=== PATIENT | female | born 1970 | race Two or more races ===

== ENCOUNTER 2018-02-08 13:13 | Inpatient (IN) | payer MEDICAID, OTHER ==
[~2018-02-08] VITALS: Ht 172.7 cm; Wt 86.2 kg
[2018-02-08] MEDS ORDERED: IV NS 0.9% 1,000 ML BAG IV ONE ×2 (13:30→15:00)
[2018-02-08 13:36] LABS: BASOPHILS % (AUTO) 0.7 % (0.0-2.0); EOSINOPHILS % (AUTO) 1.8 % (0.0-6.0); HEMATOCRIT 35 % (33-45); HEMOGLOBIN 12.1 g/dL (11.5-14.8); LYMPHOCYTES % (AUTO) 29.1 % (20.0-44.0); MEAN CORPUSCULAR HGB CONC 34 g/dl (31.0-36.0); MEAN CORPUSCULAR VOLUME 109 fL (82-100); MONOCYTES # (AUTO) 0.9 /CMM (0.1-1.30); MONOCYTES % (AUTO) 13.3 % (2.0-12.0); NEUTROPHILS # (AUTO) 3.7 /CMM (1.8-8.9); NEUTROPHILS % (AUTO) 55.1 % (43.0-81.0); PLATELET COUNT (AUTO) 375 /CMM (150-450); RED BLOOD CELL COUNT(AUTO) 3.24 MIL/uL (4.0-5.2); WHITE BLOOD COUNT (AUTO) 6.7 K/uL (4.3-11.0)
[2018-02-08 13:45] LABS: CALCIUM, SERUM 8.1 mg/dL (8.5-10.1); CREATININE 0.8 mg/dL (0.6-1.3); POTASSIUM 3.5 mmol/L (3.5-5.1)
[2018-02-08 13:50] LABS: ALBUMIN 3.2 g/dL (3.4-5.0); BILIRUBIN,DIRECT 0.1 mg/dL (0.0-0.2); BILIRUBIN,TOTAL 0.2 mg/dL (0.2-1.0); SALICYLATE 3.2 mg/dL (2.8-20.0); TOTAL PROTEIN, SERUM 6.3 g/dL (6.4-8.2)
--- NOTE | 2018-02-08 13:53 | NUR ---
PT BROUGHT IN BY PARAMEDICS FOR ALOC SECONDARY TO TRAZADONE OVER DOSE PT NON RESPONSIVE PUPILS 4MM AND SLOW PIV PLACED IN LEFT AC 18 G BY PARAMEDICS EKG BEING DONE.
[2018-02-08 14:43] LABS: APPEARANCE,URINE Clear (CLEAR); BILIRUBIN,URINE Negative (NEGATIVE); BLOOD, URINE Moderate Ery/uL (NEGATIVE); COLOR,URINE Yellow (YELLOW); KETONES,URINE Negative (NEGATIVE); LEUKOCYTE ESTERASE ,URINE Negative (NEGATIVE); NITRITE, URINE Negative (NEGATIVE); PH,URINE 6.5 (5.0-8.0); PROTEIN,URINE Negative (NEGATIVE); UGLUCOSE Negative (NEGATIVE); UROBILINOGEN,URINE 0.2 EU/dL (0.2)
--- NOTE | 2018-02-08 14:48 | NUR ---
ACCUCHECK DONE 78 VALUE MD AWARE. PATIENT NON RESPONSIVE TO VERBAL STIMULIS BUT RESPONSIVE WHEN FOLY WAS INSERTED SHE GRIMICED. CURRENT BP TAKEN MD AWARE. SECOND LITER OF FLUIDS ORDERED AND GIVEN. URINE IS CLEAR AND YELLOW 300ML OUTPUT WILL CONTIUNE TO MONITOR PATIENT. REPORT GIVEN TO TOBI GTZ RN PT ADMITTED TO ROOM 107 [facility] MD MELENDEZ
[2018-02-08 14:59] LABS: BACTERIA,URINE Many /HPF (None Seen); WBC,URINE 0-2 /HPF (0-3)
[2018-02-08 15:00] LABS: SQUAMOUS EPITHELIAL CELL,UR Moderate /HPF (None Seen)
[2018-02-08 16:00] VITALS: BP 96/63
[2018-02-08 16:10] VITALS: BP 96/63
--- NOTE | 2018-02-08 16:10 | NUR ---
TELE TD-RN ADMITTING NOTES ADMITTED PT FROM ER WITH DX OF TRAZODONE AND WITH LT ANKLE PAIN.PT IS OBTUNDED.WITH IV H/L INTACT TO LT AC.PT IS TOO LETHARGIC.WITH O2 AT 2L/MIN VIA N/C.NO SOB NOTED.O2 SAT 100%.PT'S MOM,VASHTI IS AT BEDSIDE.NO S/S OF PAIN OR DISTRESS.APHASIC BUT RESPONSIVE TO TACTILE STIMULI.CALL LIGHT PLACED WITHIN REACH.
[2018-02-08] MEDS ORDERED: INSULIN REGULAR, HUMAN 100 UNIT/ML 3 ML VIAL SQ PRN (17:30)
[2018-02-08] MEDS ORDERED: ONDANSETRON HCL/PF 4 MG/2 ML VIAL IVP PRN (17:30)
[2018-02-08] MEDS ORDERED: DEXTROSE 50%-WATER 50 ML DISP.SYRIN IV PRN (17:30)
[2018-02-08] MEDS ORDERED: ACETAMINOPHEN 325 MG TABLET PO PRN (17:30)
[2018-02-08] MEDS ORDERED: MAGNESIUM HYDROXIDE 30 ML UDC PO PRN (17:30)
[2018-02-08] MEDS ORDERED: MAG HYDROX/AL HYDROX/SIMETH 30 ML UDC PO PRN (17:30)
[2018-02-08] MEDS ORDERED: Z GUARD REMEDY 2 OZ OINT TP PRN (17:30)
[2018-02-08] MEDS: BLOOD SUGAR DIAGNOSTIC 1 EACH STRIP IN SCH (18:48)
[2018-02-08] MEDS: IV D5/ 0.9% NACL 1,000 ML IV PRN (18:49)
--- NOTE | 2018-02-08 19:00 | NUR ---
PT STARTED OPENING HER EYES AND BECAME VERBALLY RESPONSIVE,ANSWERING SIMPLE QUESTIONS THOUGH STILL HALF ASLEEP.STARTED INFUSING IVF NS AT 125 ML/HR TO LT AC.PT STARTED MOVING HER ARMS.DENIES ANY DISTRESS AND DISCOMFORT.PT'S MOM,VASHTI AT BEDSIDE.ENDORSED TO NIGHT NURSE CARE.
[2018-02-08 20:00] VITALS: BP 101/62
[2018-02-08] MEDS: HYDROCODONE/APAP 5/325MG 1 EACH TABLET PO PRN (20:00)
--- NOTE | 2018-02-08 20:00 | NUR ---
Received patient drowsy oriented x 3 able to make needs known.VS stable.Respiration even and unlabored with O2 2L NC saturation 99%.Patient complaints of Right knee and left ankle pain.PRN pain medication administered.Left ankle with swelling ,skin warm to touch and pulses palpable.Kept elevated on pillow and ice pack applied.Safety precaution observed with call light at bedside.Mother at bedside.
--- NOTE | 2018-02-08 21:00 | NUR ---
Patient dozing on and off.X-Ray to right knee done and Splint applied to left ankle/leg.No circulatory impairment noted.
--- NOTE | 2018-02-08 23:00 | NUR ---
Unable to do MAR reconciliation.There is a list of medication but no dose and frequency listed. Per patient mother she left patient medications at home.Will follow up in AM.
[2018-02-08 23:30] LABS: ALBUMIN 2.7 g/dL (3.4-5.0); BILIRUBIN,TOTAL 0.2 mg/dL (0.2-1.0); CALCIUM, SERUM 7.6 mg/dL (8.5-10.1); CREATININE 0.6 mg/dL (0.6-1.3); POTASSIUM 3.8 mmol/L (3.5-5.1); TOTAL PROTEIN, SERUM 5.7 g/dL (6.4-8.2)
[2018-02-09] VITALS: BP 100/65
--- NOTE | 2018-02-09 | NUR ---
Patient more alert asking for food.Offered sandwich and juice well tolerated.
[2018-02-09] MEDS: BLOOD SUGAR DIAGNOSTIC 1 EACH STRIP IN SCH ×5 (00:06→23:39)
[2018-02-09] MEDS: HYDROCODONE/APAP 5/325MG 1 EACH TABLET PO PRN ×4 (01:09→13:24)
[2018-02-09] MEDS: IV D5/ 0.9% NACL 1,000 ML IV PRN ×2 (03:18→19:26)
[2018-02-09 04:00] VITALS: BP_SYST 119; BP_SYST 145; BP_DIAS 69; BP_DIAS 87
[2018-02-09 06:40] LABS: BASOPHILS # (AUTO) 0.1 /CMM (0.0-0.2); BASOPHILS % (AUTO) 1.7 % (0.0-2.0); EOSINOPHILS % (AUTO) 1.9 % (0.0-6.0); HEMATOCRIT 34 % (33-45); HEMOGLOBIN 11.7 g/dL (11.5-14.8); LYMPHOCYTES # (AUTO) 1.6 /CMM (0.8-4.8); LYMPHOCYTES % (AUTO) 33.3 % (20.0-44.0); MEAN CORPUSCULAR HGB CONC 34 g/dl (31.0-36.0); MEAN CORPUSCULAR VOLUME 109 fL (82-100); MONOCYTES # (AUTO) 0.8 /CMM (0.1-1.30); MONOCYTES % (AUTO) 16.1 % (2.0-12.0); NEUTROPHILS # (AUTO) 2.2 /CMM (1.8-8.9); PLATELET COUNT (AUTO) 391 /CMM (150-450); RED BLOOD CELL COUNT(AUTO) 3.16 MIL/uL (4.0-5.2); WHITE BLOOD COUNT (AUTO) 4.8 K/uL (4.3-11.0)
--- NOTE | 2018-02-09 06:55 | NUR ---
Patient resting.VS remains stable.Tele monitoring shows SR.Received 3 doses of [place] for pain with relief.AM care done.Will endorse to day shift RN for further care and management.
[2018-02-09 07:00] LABS: ALBUMIN 2.8 g/dL (3.4-5.0); BILIRUBIN,TOTAL 0.3 mg/dL (0.2-1.0); CALCIUM, SERUM 7.6 mg/dL (8.5-10.1); CREATININE 0.8 mg/dL (0.6-1.3); MAGNESIUM 1.4 mg/dL (1.8-2.4); PHOSPHORUS 2.7 mg/dL (2.5-4.9); TOTAL PROTEIN, SERUM 5.8 g/dL (6.4-8.2)
[2018-02-09 07:14] LABS: THYROID STIMULATING HORMONE 1.527 uIU/mL (0.358-3.74)
[2018-02-09 08:00] VITALS: BP 131/79
[2018-02-09 08:32] LABS: EOSINOPHILS % (MANUAL) 4 % (0-4); LYMPHOCYTES % (MANUAL) 36 % (16-48); MONOCYTES % (MANUAL) 13 % (0-11.0); NEUTROPHILS % (MANUAL) 47 (42-76)
[2018-02-09] MEDS: PANTOPRAZOLE 40 MG TABLET.DR PO SCH (09:17)
[2018-02-09 12:00] VITALS: BP 139/79
[2018-02-09] MEDS ORDERED: METH-406 PO (12:17)
[2018-02-09] MEDS ORDERED: GABA800T3 PO (12:17)
[2018-02-09] MEDS ORDERED: TRAM50TA2 PO (12:17)
[2018-02-09] MEDS ORDERED: TRAZ-214 PO (12:17)
[2018-02-09] MEDS ORDERED: MELO-107 PO (12:18)
[2018-02-09] MEDS ORDERED: QUET100T PO (12:19)
[2018-02-09] MEDS ORDERED: METO-356 PO (12:19)
[2018-02-09] MEDS ORDERED: VENL150T PO (12:20)
[2018-02-09] MEDS ORDERED: ALPR0.5T8 PO (12:20)
[2018-02-09] MEDS: LORAZEPAM INJ 2 MG/ML VIAL IV PRN ×2 (13:35→22:16)
[2018-02-09] MEDS: GABAPENTIN 400 MG CAPSULE PO SCH ×2 (13:35→20:50)
[2018-02-09] MEDS: MORPHINE SULFATE INJ 4 MG/ML DISP.SYRIN IV PRN ×2 (15:13→20:51)
[2018-02-09 16:00] VITALS: BP 150/91
--- NOTE | 2018-02-09 17:06 | NUR ---
Patient asking for many medications. Topical, oral, intravenous for pain and relaxation right after the medication is given. Requesting providers to order all tests she has pending with outside providers and consults including a mammogram and flower cutter. Will continue to monitor. Provided listening. Encouraged expression. Appears more anxious with mother and support animal at bedside.
[2018-02-09] MEDS: Magnesium 1GM/D5W 100ML PREMIX 100 ML IV SCH ×2 (18:13→18:14)
--- NOTE | 2018-02-09 19:30 | NUR ---
TRESA RN NOTE PT RECEIVED AWAKE AND ALERT IN BED WITH MOTHER AND SUPPORT DOG AT BEDSIDE AND SITTER. A/O X3-4 AND ABLE TO VERBALIZE NEEDS. C/O PAIN TO LEFT ANKLE. LEFT ANKLE ELEVATED, REPOSITIONED AND WRAPPED WITH ICE PACKS. ON 2L OF O2 VIA NC AND SATURATING WELL. BREATHING REGULAR AND UNLABORED. APPEARS ANXIOUS AND NEEDY WITH FAMILY AT BEDSIDE. TELE-SR. IV LAC CLEAN AND DRY WITH FLUIDS INFUSING. FONTENOT CATHETER IN PLACE AND DRAINING BY GRAVITY. CALL LIGHT WITHIN REACH. WILL CONTINUE TO MONITOR.
[2018-02-09 20:00] VITALS: BP 133/78
[2018-02-10] VITALS: BP 133/88
[2018-02-10] MEDS: HYDROCODONE/APAP 5/325MG 1 EACH TABLET PO PRN (00:40)
[2018-02-10 04:00] VITALS: BP 145/94
[2018-02-10] MEDS: IV D5/ 0.9% NACL 1,000 ML IV PRN ×3 (04:09→22:46)
[2018-02-10] MEDS: MORPHINE SULFATE INJ 4 MG/ML DISP.SYRIN IV PRN ×4 (04:12→21:14)
[2018-02-10] MEDS: BLOOD SUGAR DIAGNOSTIC 1 EACH STRIP IN SCH ×2 (05:59→11:50)
--- NOTE | 2018-02-10 07:09 | NUR ---
RN NOTES RECEIVED PT ON BED, A/Ox3, ON 2L O2 N/C , RESPIRATION EVEN AND UNLABORED . NO SOB NOTED, SUPPORTIVE FAMILY AT THE BEDSIDE, PT C/O RIGHT AND LEFT ANKLE PAIN , CONTINUE PAIN MANAGEMENT , SKIN WARM TO TOUCH , PEDAL PULSES PRESENT, D5NS AT 125CC/HR RUNNING VIA L ARM IV SITE , SR UP x3, CALL LIGHT WITHIN EASY REACH, BED LOCKED AND IN LOWEST POSITION , CONTINUE TO MONITOR .
[2018-02-10 07:12] LABS: CALCIUM, SERUM 8.2 mg/dL (8.5-10.1); CREATININE 0.8 mg/dL (0.6-1.3); MAGNESIUM 1.7 mg/dL (1.8-2.4); POTASSIUM 4.2 mmol/L (3.5-5.1)
[2018-02-10 08:00] VITALS: BP 149/90
[2018-02-10] MEDS: MELOXICAM 7.5 MG TABLET PO SCH (08:55)
[2018-02-10] MEDS: GABAPENTIN 400 MG CAPSULE PO SCH ×3 (08:55→21:11)
[2018-02-10] MEDS: PANTOPRAZOLE 40 MG TABLET.DR PO SCH (08:56)
[2018-02-10] MEDS: VENLAFAXINE XR 150 MG CAP.SR.24H PO SCH (08:56)
[2018-02-10] MEDS: METOPROLOL SUCCINATE 25 MG TAB.SR.24H PO SCH (08:57)
[2018-02-10] MEDS: Magnesium 1GM/D5W 100ML PREMIX 100 ML IV SCH ×2 (11:43→13:12)
--- NOTE | 2018-02-10 12:00 | NUR ---
RN NOTES PT STABLE , SUPPORTIVE FAMILY AT THE BEDSIDE, CONTINUE TO MONITOR .
[2018-02-10 16:00] VITALS: BP 150/94
--- NOTE | 2018-02-10 18:45 | NUR ---
RN NOTES D5NS AT 125CC/HR RUNNING VIA L F ARM IV SITE , PO DRINING TO GRAVITY , SR UP x3, CALL LIGHT WITHIN EASY REACH, NO SIGNIFICANT CHANGES NOTED ON THIS SHIFT, WILL ENDOSE TO CREDIT OPERATIONS SPECIALIST NURSE FOR CONTINUITY OF CARE .
[2018-02-10 20:00] VITALS: BP 156/98
--- NOTE | 2018-02-10 21:16 | NUR ---
morphine given as ordered for c/o ble pain. will cont to monitor ,
[2018-02-10] MEDS: LORAZEPAM INJ 2 MG/ML VIAL IV PRN (23:19)
--- NOTE | 2018-02-10 23:20 | NUR ---
Ativan given as ordered for c/o anxiety. will cont to monitor ,
[2018-02-11 04:00] VITALS: BP 150/90
[2018-02-11] MEDS: MORPHINE SULFATE INJ 4 MG/ML DISP.SYRIN IV PRN ×4 (04:09→23:04)
--- NOTE | 2018-02-11 04:10 | NUR ---
morphine given as ordered for c/o ble pain. will cont to monitor
[2018-02-11] MEDS: IV D5/ 0.9% NACL 1,000 ML IV PRN (06:42)
--- NOTE | 2018-02-11 07:10 | NUR ---
RN NOTES RECEIVED PT ON BED, A/Ox4, ON 2L O2 N/C , RESPIRATION EVEN AND UNLABORED, NO SOB NOTED, FONTENOT DRINING TO GRAVITY WITH YELLOW CLEAR URINE, L FA IV SITE G 22 , CLEAN ,DRY AND INTACT, WITH NS AT 125 CC/HR RUNNING ,NO DISTRESS NOTED, SR UP x3, CALL LIGHT WITHIN EASY REACH, BED LOCK AND IN LOWEST POSITION, CONTINUE TO MONITOR .
[2018-02-11 08:00] VITALS: BP 168/94
[2018-02-11] MEDS: VENLAFAXINE XR 150 MG CAP.SR.24H PO SCH (08:26)
[2018-02-11] MEDS: PANTOPRAZOLE 40 MG TABLET.DR PO SCH (08:26)
[2018-02-11] MEDS: GABAPENTIN 400 MG CAPSULE PO SCH ×3 (08:26→20:00)
[2018-02-11] MEDS: METOPROLOL SUCCINATE 25 MG TAB.SR.24H PO SCH (08:31)
[2018-02-11] MEDS: MELOXICAM 7.5 MG TABLET PO SCH (08:31)
[2018-02-11 08:41] LABS: CALCIUM, SERUM 8.4 mg/dL (8.5-10.1); CREATININE 0.5 mg/dL (0.6-1.3); MAGNESIUM 1.5 mg/dL (1.8-2.4); POTASSIUM 4.3 mmol/L (3.5-5.1)
[2018-02-11] MEDS: Magnesium 1GM/D5W 100ML PREMIX 100 ML IV SCH ×2 (10:49→12:13)
--- NOTE | 2018-02-11 11:15 | NUR ---
services manager consult requested by Amadou Le for trazadone overdose. Pt is a 47 year old female admitted to [facility] due to trazadone overdose. Sw met with pt and pts mother at bedside, pt appeared to be clean and well-groomed, pt is alert and oriented aox4. Pt mood was euthymic and affect is congruent with mood. Pt seem to be in a good mode when conversing with sw. Pt reported that she is aware of what has caused her to be hospitalized. Pt reports that her primary MD Dr. Ady Whitfield ([address] [place] [address] phone ) had recently removed her prescription to trazadone and replaced it with Zanex. Pt reports to sw that her trazadone prescription had been empty before events leading to her overdose. Pt reports she has specific medication to help her sleep due to her insomnia. Pt reports she had been coming home in a Lyft and when she got of the vehicle her leg slipped from the sidewalk into a ring sewer drain and her ankle twisted, pt reports she was in a lot of pain and she took her night time prescriptions and fell asleep, pt states she was not attempting to kill herself. Pt is denying any wish to harm herself, Pt denies overdose and states it was un-intentional. No need to call crisis hotline. Pt does not have psychiatric doctor however accepted referral provided by social work. Sw provided psychiatric health referral to Shala Hutchinson, PHD Address: [address] [place] [id number]: and mental health resources [facility] [id number] [facility]. [address], [place], [id number] [phone], [facility]-[id number] [facility], [id number] , [facility] [id number] [facility] [address], [facility] [place], [id number] , [facility] [id number] [facility], [id number] , [facility] [facility], [phone] .Pt accepted resources. Pt currently lives with her mother and multiple other relatives at [address] [facility], [address]. Pt reports supportive mother and family members. Pt is however from her spouse since September. Pt has no children and was born in [facility]. SW and pt discussed possible ways to organize prescription medication, pt reported she is to have a list of all her medications as a way to organize and me mindful. Pt is denying any wish to harm herself, Pt denies purposeful overdose and states it was un-intentional. No need to call crisis hotline. PRISCILLA updated ALEJANDRO Gilliam with the aforementioned discussion. Addendum: 02/11/18 at 1419 by ADRIANNE WELLS Pt is requesting her emergency contact be Miriam Lee ([phone])
--- NOTE | 2018-02-11 14:00 | NUR ---
RN NOTES IVF AND FONTENOT D/YE PER MD ORDER . CONTINUE TO MONITOR .
[2018-02-11 16:00] VITALS: BP_SYST 163; BP_SYST 167; BP_DIAS 95
--- NOTE | 2018-02-11 18:39 | NUR ---
RN NOTES PT STABLE , VOIDING WITHOUT ANY DIFFICULTIES , NO SIGNIFICANT CHANGES NOTED ON THIS SHIFT, WILL ENDOSE TO BALLISTIC TECHNICIAN NURSE FOR CONTIGUITY OF CARE .
[2018-02-11 20:00] VITALS: BP 153/90
--- NOTE | 2018-02-11 20:00 | NUR ---
MS RN NOTES RECEIVED PT ON BED. ON ROOM AIR. SATURATING WELL. NO RESPIRATORY DISTRESS NOTED. IV ACCESS ON LFA G22 SALINE LOCK. PATENT AND INTACT. HEAD OF BED ELEVATED. SIDE RAILS UP. CALL LIGHT WITHIN REACH. BED ALARM ON. WILL CONTINUE TO MONITOR PT CLOSELY.
[2018-02-11] MEDS ORDERED: ACETAMINOPHEN 650 MG/SUPP.RECT RC PRN (20:30)
[2018-02-12] VITALS: BP 189/89
[2018-02-12] MEDS ORDERED: diphenhydrAMINE HCL ELIX 25 MG/10 ML UDC PO PRN (01:30)
--- NOTE | 2018-02-12 01:52 | NUR ---
MS RN NOTES PER PT SHE CANNOT SLEEP. PAGED ELECTRICAL MAINTENANCE ENGINEER. ORDERED 25MG PO HS FOR SLEEPING. WILL CONTINUE TO MONITOR PT CLOSELY.
[2018-02-12 04:00] VITALS: BP 165/83
[2018-02-12] MEDS: MORPHINE SULFATE INJ 4 MG/ML DISP.SYRIN IV PRN ×5 (04:23→21:50)
--- NOTE | 2018-02-12 06:46 | NUR ---
MS RN NOTES NO ACUTE CHANGES NOTED DURING THE SHIFT. PROVIDED COMFORT AND SAFETY. DUE MEDS GIVEN. WILL ENDORSE TO THE AM NURSE FOR CONTINUITY OF CARE.
--- NOTE | 2018-02-12 07:15 | NUR ---
MS/RN Patient received Patient received from senior technical project manager. A/O X4, denies any pain or discomfort at this time. Safety measures in place, call light within reach. Family at bedside, will continue to monitor and ensure safety.
[2018-02-12 08:00] VITALS: BP 162/98
[2018-02-12] MEDS: GABAPENTIN 400 MG CAPSULE PO SCH ×3 (08:41→21:49)
[2018-02-12] MEDS: METOPROLOL SUCCINATE 25 MG TAB.SR.24H PO SCH (08:42)
[2018-02-12] MEDS: VENLAFAXINE XR 150 MG CAP.SR.24H PO SCH (08:42)
[2018-02-12] MEDS: PANTOPRAZOLE 40 MG TABLET.DR PO SCH (08:42)
[2018-02-12] MEDS: MELOXICAM 7.5 MG TABLET PO SCH (08:43)
[2018-02-12 09:30] VITALS: BP 148/78
--- NOTE | 2018-02-12 10:30 | NUR ---
MS/RN S/B Dr Amador Seen by Dr Amador - patient to be discharged to home today and follow up with ortho as outpatient.
--- NOTE | 2018-02-12 11:15 | NUR ---
MS/RN S/B PT Seen by PT - patient only able to take 10 steps due to pain in left leg, per PT patient would benefit from short term SNF placement. revenue cycle manager crow medeiros, and will come and talk with patient.
--- NOTE | 2018-02-12 13:00 | NUR ---
MS/RN S/B card room manager Seen by residential case manager Glenna - patient to be discharged to [facility] for further physical therapy. Will call with picker / packer time.
[2018-02-12] MEDS: AMLODIPINE BESYLATE 5 MG TABLET PO SCH (13:06)
[2018-02-12 16:00] VITALS: BP 187/95
[2018-02-12] MEDS ORDERED: CLONIDINE HCL 0.1 MG TABLET PO STA (17:09)
--- NOTE | 2018-02-12 18:02 | NUR ---
MS/news camera person on hold Discharge on hold at this time due to elevated blood pressure.
--- NOTE | 2018-02-12 23:45 | NUR ---
RN NOTES. PATIENT REFUSED TO GO HOME. BECAUSE SHE WANTED TRAZODONE BE REMOVED TO HER DC MEDS LIST, AND WANTS THE LIST OF HER APPOINTMENTS THAT SHE GAVE TO A MORNING STAFF. NOT ABLE TO FIND THE PAPER SHE'S TALKING ABOUT. NOTIFIED ROM VALDES. EXPLAINED RISKS AND BENEFITS AND PATIENT STILL REFUSED TO GO HOME TONIGHT.
--- NOTE | 2018-02-13 04:00 | NUR ---
rn notes at midnight patient gave instructions to not wake her up at 4am for vital signs if she's sleeping. explained risks and benefits and offered 3 x and still refused 0400 vital signs if she's asleep during this time. at 4am patient is sleeping. did not take 0400 vital signs
[2018-02-13] MEDS: MORPHINE SULFATE INJ 4 MG/ML DISP.SYRIN IV PRN (05:55)
--- NOTE | 2018-02-13 07:35 | NUR ---
ms rn received [place] bed, awake,alert,oriented x4,not in any form of distress, respirations even and unlabored,no sob noted, lungs are clear, abdomen soft,positive bowel sounds,denies pain at this time, will monitor patient.
[2018-02-13 08:00] VITALS: BP 136/90
[2018-02-13] MEDS: VENLAFAXINE XR 150 MG CAP.SR.24H PO SCH (08:19)
[2018-02-13 08:20] VITALS: BP 136/90
[2018-02-13] MEDS: METOPROLOL SUCCINATE 25 MG TAB.SR.24H PO SCH (08:20)
[2018-02-13] MEDS: GABAPENTIN 400 MG CAPSULE PO SCH ×2 (08:20→12:20)
[2018-02-13] MEDS: MELOXICAM 7.5 MG TABLET PO SCH (08:20)
[2018-02-13] MEDS: AMLODIPINE BESYLATE 5 MG TABLET PO SCH (08:20)
[2018-02-13] MEDS: PANTOPRAZOLE 40 MG TABLET.DR PO SCH (08:20)
[2018-02-13] MEDS: LORAZEPAM INJ 2 MG/ML VIAL IV PRN ×2 (08:27→15:26)
--- NOTE | 2018-02-13 09:00 | NUR ---
ms adams breakfast served,due meds given,tolerated well.
--- NOTE | 2018-02-13 09:10 | NUR ---
ms rn was seen by dr. amezcua, patient wants to removed trazodone overdose and meds in her record.
--- NOTE | 2018-02-13 12:00 | NUR ---
ms rn patient demands all pain meds and ativan when it's due. all needs attended.
[2018-02-13] MEDS: HYDROCODONE/APAP 5/325MG 1 EACH TABLET PO PRN (12:25)
--- NOTE | 2018-02-13 14:55 | NUR ---
ms rn patient has wound at her mright knee, refused to take a picture before discharge.
--- NOTE | 2018-02-13 15:00 | NUR ---
ms rn patient went to [facility]. no distress noted,all needs attended.
--- NOTE | 2018-02-13 16:20 | NUR ---
ms rn report given to sheldon adams at [facility].
== END 2018-02-13 16:05 | DRG 812 ==
LOC: ER 13:15 → TELE-TD 15:32 → MEDSG1 02-10 11:12
PROVIDERS: ADMIT Hospitalist; ATTEND Internal Medicine
DX: T42.4X1A Poisoning by benzodiazepines, accidental (unintentional), initial encounter (principal); J96.00 Acute respiratory failure, unspecified whether with hypoxia or hypercapnia; G92 Toxic encephalopathy; I95.9 Hypotension, unspecified; S92.152A Displaced avulsion fracture (chip fracture) of left talus, initial encounter for closed fracture; F41.9 Anxiety disorder, unspecified; S80.211A Abrasion, right knee, initial encounter; W19.XXXA Unspecified fall, initial encounter; Y93.9 Activity, unspecified; S93.402A Sprain of unspecified ligament of left ankle, initial encounter; S82.402A Unspecified fracture of shaft of left fibula, initial encounter for closed fracture; G89.29 Other chronic pain; Y92.009 Unspecified place in unspecified non-institutional (private) residence as the place of occurrence of the external cause; F32.9 Major depressive disorder, single episode, unspecified
CPT/HCPCS: 36415; 73560-TC; 73590-TC; 73610-TC; 80048-TC; 80053-TC; 80061-TC; 80076-TC; 80305; 81000-TC; 82962-TC; 83735-TC; 84100-TC; 84443-TC; 84702-TC; 85025-TC; 87081-TC; 87086-TC; 97110-TC; 97116-TC; 97530-TC; A4606; A6402; G0378; G0480; J1815; J2060; J2270; J3475; J7030; J7042; Q0163; Z7610

== ENCOUNTER 2018-07-27 21:56 | Emergency (ER) | payer MEDICAID, OTHER ==
[~2018-07-27] VITALS: Ht 160 cm; Wt 76.2 kg
[~2018-07-27 21:56] MED LIST: ALPR0.5T8 PO; GABA800T11 PO; MELO-107 PO; METH-406 PO; METO-356 PO; QUET100T PO; TRAM50TA2 PO; TRAZ-214 PO; VENL150T PO
[2018-07-27 22:00] VITALS: BP 154/92
--- NOTE | 2018-07-27 22:10 | NUR ---
[id number] FROM STREET FOR ETOH. PATIENT REFUSES TO ANSWER ANY QUESTIONS AT THIS TIME. PT IS AMBULATORY, HYPERTENSIVE, RR EVEN AND UNLABORED ON RA. NO ACUTE DISTRESS NOTED. PT UNCOOPERATIVE AT THIS TIME.
--- NOTE | 2018-07-27 23:16 | NUR ---
PT REFUSING LAB DRAW AND URINE COLLECTION. GETTING AGITATED, SAYING SHE'S LEAVING. MD NOTIFIED. PT AOX3 WITH STEADY GAIT. PER , PT CAN LEAVE.
== END 2018-07-27 23:16 | disposition left against medical advice (07) ==
LOC: ER 21:58
DX: R40.0 Somnolence (principal); Z79.899 Other long term (current) drug therapy

== ENCOUNTER 2018-07-28 00:07 | Emergency (ER) | payer MEDICAID ==
[~2018-07-28] VITALS: Ht 160 cm; Wt 76.2 kg
--- NOTE | 2018-07-28 01:52 | NUR ---
PT WAS MNOIK FUNK EARLIER FOR ETOH FROM STREETS. ELOPED EARLIER AND CAME BACK TO BE SEEN. PT REFUSED TO HAVE BLOOD DRAWN FIRST VISIT BUT IS NOW COMPLIANT. PT HAS NO COMPLAINTS AND DOES NOT KNOW WHY SHE IS HERE. PT IS AOX3. PT IS IN BED 6. WILL CONTINUE TO MONITOR.
--- NOTE | 2018-07-28 02:15 | NUR ---
URINE COLLECTED AND SENT TO LAB
--- NOTE | 2018-07-28 02:31 | NUR ---
PHLEB AT BEDSIDE FOR LAB DRAW
[2018-07-28 02:48] LABS: BASOPHILS % (AUTO) 0.5 % (0.0-2.0); EOSINOPHILS % (AUTO) 2.9 % (0.0-6.0); HEMATOCRIT 40 % (33-45); HEMOGLOBIN 13.4 g/dL (11.5-14.8); LYMPHOCYTES # (AUTO) 2.6 /CMM (0.8-4.8); LYMPHOCYTES % (AUTO) 50.8 % (20.0-44.0); MEAN CORPUSCULAR HGB CONC 33 g/dl (31.0-36.0); MEAN CORPUSCULAR VOLUME 102 fL (82-100); MONOCYTES # (AUTO) 0.5 /CMM (0.1-1.30); MONOCYTES % (AUTO) 9.6 % (2.0-12.0); NEUTROPHILS # (AUTO) 1.8 /CMM (1.8-8.9); NEUTROPHILS % (AUTO) 36.2 % (43.0-81.0); PLATELET COUNT (AUTO) 334 /CMM (150-450); RED BLOOD CELL COUNT(AUTO) 3.95 MIL/uL (4.0-5.2); WHITE BLOOD COUNT (AUTO) 5.1 K/uL (4.3-11.0)
[2018-07-28 02:49] LABS: APPEARANCE,URINE CLEAR (CLEAR); BILIRUBIN,URINE NEGATIVE (NEGATIVE); BLOOD, URINE NEGATIVE Ery/uL (NEGATIVE); COLOR,URINE DARK YELLO (YELLOW); KETONES,URINE TRACE (NEGATIVE); LEUKOCYTE ESTERASE ,URINE NEGATIVE (NEGATIVE); NITRITE, URINE NEGATIVE (NEGATIVE); PROTEIN,URINE NEGATIVE (NEGATIVE); UGLUCOSE NEGATIVE (NEGATIVE); UROBILINOGEN,URINE 0.2 EU/dL (0.2)
[2018-07-28 02:58] LABS: CALCIUM, SERUM 8.8 mg/dL (8.5-10.1); CREATININE 0.9 mg/dL (0.6-1.3); POTASSIUM 4.2 mmol/L (3.5-5.1)
[2018-07-28 03:03] LABS: BILIRUBIN,DIRECT 0.1 mg/dL (0.0-0.2); BILIRUBIN,TOTAL 0.3 mg/dL (0.2-1.0); SALICYLATE 3.8 mg/dL (2.8-20.0); TOTAL PROTEIN, SERUM 7.6 g/dL (6.4-8.2)
[2018-07-28 03:39] LABS: BACTERIA,URINE Moderate /HPF (None Seen); RBC,URINE 0-2 /HPF (0-2); SQUAMOUS EPITHELIAL CELL,UR Few /HPF (None Seen); WBC,URINE 0-2 /HPF (0-3)
--- NOTE | 2018-07-28 04:36 | NUR ---
Patient is resting comfortably in bed with eyes closed. Easily aroused. VSS
[2018-07-28 05:56] VITALS: BP 120/71
== END 2018-07-28 05:57 | disposition home or self-care (01) ==
LOC: ER 00:09
DX: F10.129 Alcohol abuse with intoxication, unspecified (principal); R74.0 Nonspecific elevation of levels of transaminase and lactic acid dehydrogenase [LDH]; Z79.899 Other long term (current) drug therapy; Y90.8 Blood alcohol level of 240 mg/100 ml or more
CPT/HCPCS: 36415; 80048; 80076; 80305; 80307; 80329; 81001; 84702; 85025; 87086; 99283; G0480; 81000-TC

== ENCOUNTER 2018-08-01 13:47 | Emergency (ER) | payer MEDICAID ==
[~2018-08-01] VITALS: Ht 165.1 cm; Wt 82.6 kg
--- NOTE | 2018-08-01 14:16 | NUR ---
DR BARGER AT BEDSIDE
[2018-08-01] MEDS ORDERED: LORAZEPAM INJ 2 MG/ML VIAL IM ONE (14:30)
[2018-08-01] MEDS ORDERED: HALOPERIDOL LACTATE INJ 5 MG/ML VIAL ONE (14:30)
[2018-08-01] MEDS ORDERED: LORAZEPAM INJ 2 MG/ML VIAL ONE (14:30)
[2018-08-01] MEDS ORDERED: HALOPERIDOL LACTATE INJ 5 MG/ML VIAL IM ONE (14:30)
[2018-08-01 14:45] LABS: BASOPHILS # (AUTO) 0.1 /CMM (0.0-0.2); BASOPHILS % (AUTO) 1.9 % (0.0-2.0); EOSINOPHILS % (AUTO) 3.3 % (0.0-6.0); HEMATOCRIT 39 % (33-45); HEMOGLOBIN 13.4 g/dL (11.5-14.8); LYMPHOCYTES # (AUTO) 2.3 /CMM (0.8-4.8); LYMPHOCYTES % (AUTO) 43.9 % (20.0-44.0); MEAN CORPUSCULAR HGB CONC 34 g/dl (31.0-36.0); MEAN CORPUSCULAR VOLUME 103 fL (82-100); MONOCYTES # (AUTO) 0.6 /CMM (0.1-1.30); MONOCYTES % (AUTO) 11.5 % (2.0-12.0); NEUTROPHILS # (AUTO) 2.1 /CMM (1.8-8.9); NEUTROPHILS % (AUTO) 39.4 % (43.0-81.0); PLATELET COUNT (AUTO) 332 /CMM (150-450); RED BLOOD CELL COUNT(AUTO) 3.78 MIL/uL (4.0-5.2); WHITE BLOOD COUNT (AUTO) 5.3 K/uL (4.3-11.0)
[2018-08-01 14:51] LABS: CALCIUM, SERUM 8.7 mg/dL (8.5-10.1); CREATININE 0.8 mg/dL (0.6-1.3); POTASSIUM 3.8 mmol/L (3.5-5.1)
--- NOTE | 2018-08-02 05:44 | NUR ---
pt ok to discharge per dr pang. Patient discharged to home in stable condition. Written and verbal after care instructions given. Patient verbalizes understanding of instruction.Patient is awake and alert to self, day, and place. pt ambulatory with a steady gait
[2018-08-02 06:18] VITALS: BP 128/72
== END 2018-08-02 06:19 | disposition home or self-care (01) ==
LOC: ER 13:54
DX: F10.129 Alcohol abuse with intoxication, unspecified (principal); R45.851 Suicidal ideations; R41.82 Altered mental status, unspecified; Z79.899 Other long term (current) drug therapy; Y90.8 Blood alcohol level of 240 mg/100 ml or more
CPT/HCPCS: 36415; 70450; 80048; 80305; 80307; 84702; 85025; 96372 ×2; 99284; J1630; J2060; G0480